=== PATIENT | female | born 1990 | race Caucasian/White ===

== ENCOUNTER 2018-12-11 15:25 | Inpatient (IN) | payer SELFPAY ==
[2017-03-28 10:35] VITALS: BMI 21.9
[2018-12-11] VITALS (11 sets, daily range): BP systolic 115–136; BP diastolic 56–75; PULSE 72–94; RESP 16–19; TEMP 36.2–36.8; O2SAT 96–100; BMI 32.2
[2018-12-11] MEDS: Lactated Ringers 1,000 ML 999 ML IV (15:55)
[2018-12-11 16:08] LABS: Absolute Neutrophil Count 8.3 X10^3/uL (2.0-7.7); Basophil# 0.05 X10^3/uL; Basophil% 0.5 % (0-1); Eosinophil# 0.09 X10^3/uL; Eosinophils% 0.8 % (0-5); Hematocrit 39.5 % (37-47); Hemoglobin 13.8 g/dL (12.0-15.0); Lymphocyte % 14.6 % (19-41); Mean Corp Hgb Conc 34.9 g/dL (32-36); Mean Corpuscular Hgb 31.4 pg (27.0-32.0); Mean Corpuscular Volume 89.8 fL (81-99); Monocyte# 0.82 X10^3/uL; Monocyte% 7.5 % (0-10); NRBC Flagged by Analyzer 0 % (0-5); Neutrophil # 8.29 X10^3/uL (2.7-7.7); Neutrophil % 75.6 % (47-70); Platelet Count 195 K/mm3 (150-450); RBC Distribution Width CV 13.2 % (11.6-14.6); RBC Distribution Width SD 43.3 fl (35.1-43.9)
--- NOTE | 2018-12-11 18:29 | PCM.HP.OB ---
- Problem List (1) 40 weeks gestation of Status: Acute (2) Breech presentation Status: Acute Qualifiers: Fetus number: single or unspecified fetus Qualified Code(s): O32.1XX0 - Maternal care for breech presentation, not applicable or unspecified History Date of Admission: 12/11/18 Final CHAZ: 12/11/18 Gestational age: 40 Weeks and 0 Days History of this : This is a 28 year-old, G [1], P [0], at 40 weeks gestational age admitted with breech presentation for scheduled section. Denies contractions, leaking of fluid or vaginal bleeding. Fetus is active. Surgical History: Surgical History (Last Updated 12/11/18 @ 18:34 by Joselyn De Anda MD) H/O laparoscopy Z98.890 Hx of appendectomy Z90.49 Allergies No Known Allergies Allergy (Verified 12/11/18 15:43) Home Medications: Home Medications Vits [Prenatabs FA] 1 tab PO DAILY 12/11/18 Smoking Status: Never smoker Alcohol: None Heart Tracinbpm TOCO Analysis: No contractions History Past Pregnancies: Past Pregnancies Delivery Date Name GA/Weeks Outcome Route Weight Gender Labor Length Anesthesia Delivery Location Provider FOB Labs: Labs 12/11/18 15:55 WBC 11.0 RBC 4.40 Hgb 13.8 Hct 39.5 MCV 89.8 MCH 31.4 MCHC 34.9 RDW Std Deviation 43.3 RDW Coeff of Sepideh 13.2 Plt Count 195 MPV 11.0 Immature Gran % (Auto) 1.000 H Neut % (Auto) 75.6 H Lymph % (Auto) 14.6 L [place] % (Auto) 7.5 Eos % (Auto) 0.8 Baso % (Auto) 0.5 Absolute Neuts (auto) 8.3 H Absolute Lymphs (auto) 1.60 Nucleated RBC % 0 Mom's Problem List Problem Status Onset Code 40 weeks gestation of Acute Z3A.40 Breech presentation Acute O32.1XX0 Mom's Labs & Results 12/11/18 12/11/18 12/11/18 15:55 15:55 17:45 WBC 11.0 RBC 4.40 Hgb 13.8 Hct 39.5 MCV 89.8 MCH 31.4 MCHC 34.9 RDW Std Deviation 43.3 RDW Coeff of Sepideh 13.2 Plt Count 195 MPV 11.0 Immature Gran % (Auto) 1.000 H Neut % (Auto) 75.6 H Lymph % (Auto) 14.6 L [place] % (Auto) 7.5 Eos % (Auto) 0.8 Baso % (Auto) 0.5 Absolute Neuts (auto) 8.3 H Absolute Lymphs (auto) 1.60 Nucleated RBC % 0 Chlam trachomat DNA PCR Pending N.gonorrhoeae DNA (PCR) Pending Blood Type AB POSITIVE Antibody Screen NEGATIVE Course Did the patient receive Yes care? Labs Blood Type: AB RH: POSITIVE RPR/VDRL/Syphilis Nonreactive Rubella status Immune HbSAg Negative Date Done: 11/12/17 Chlamydia Not Done Gonorrhea Not Done HIV/AIDS Non-Reactive Group B Strep: Not Done Other Lab Procedures/Results/ Reji/Chlamydia collected on admission Comments: Current Obstetrical History Gestational Diabetes No Incompetent Cervix No Infertility Yes: IVF IUGR No Macrosomia No Hypertension/Pre-eclampsia No Placenta Previa/Abruption No PTL/PROM No Uterine anomaly No Oligohydramnios No Polyhydramnios No Multiple gestation No Past Medical History Asthma No Diabetes No Hypertension No Heart disease No Mitral valve prolapse No Neurologic/Seizure disorder/ No Migraines Kidney disease No Liver disease No Varicosities No Clotting disorders/Hx of DVT No Thyroid Dysfunction Yes: low thyroid in the past, no meds Other medical diseases No Psychiatric disorders No Major trauma No Abnormal PAP smear No Sleep apnea No Mammogram in the last 2 years No Medications Taken During Dose/Freq.: [keenan supplement 1 tablet BID ] Last Date/Time of Medication 12/11/18 0800 Taken: [keenan supplement] Reason for taking medication [ 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 Expected Delivery Method: Scheduled Section Physical Exam Vitals: AVSS General: Alert, Oriented x3, Cooperative, No apparent distress HEENT: Atraumatic, Normocephalic Cardiovascular: Regular rate, Regular Rhythm Lungs: Clear to auscultation, Normal air movement Abdomen: Soft, Non Tender, Gravid Extremities:: No edema Neurological: Neuro grossly intact SOLE DYER: Normal external genitalia Estimated gestational size: Appropriate for gestational size Presentation: Breech Assessment/Plan All Active Problems 40 weeks gestation of (Acute) Breech presentation (Acute) This is a 28 year-old, G [1], P [0], at 40 weeks gestational age. - section consents reviewed and signed. -Blood transfusion acceptable.
[2018-12-11] MEDS: Lactated Ringers 1,000 ML 150 ML IV (19:09)
[2018-12-11] MEDS: Sodium Citrate/Citric Acid 30 ML UDC PO (19:10)
[2018-12-11] MEDS: Cefazolin 2 GM in 0.9% Normal Saline 100 ML IV (19:20)
[2018-12-11 19:35] LABS: Prothrombin Time (Protime)PT. 12.7 SECONDS (11.7-14.9)
[2018-12-11 19:36] LABS: Partial Thromboplast Time 26.2 Seconds (24.1-36.2)
[2018-12-11] MEDS: Oxytocin 30 units/NS 500 ml 30 UNITS/500 ML IV.SOLN 167 UNITS IV (19:49)
[2018-12-11] MEDS: Ondansetron 4 MG/2 ML Vial IV (19:58)
[2018-12-11 20:26] LABS: Chlamydia Trachomatis by PCR Negative (Negative); Neisserai gonorrhoeae by PCR Negative (Negative); Probe Check PASS; Sample Adequacy Control PASS; Specimen Processing Control PASS
[2018-12-11] MEDS: Lactated Ringers 1,000 ML 100 ML IV (20:40)
[2018-12-11] MEDS: Ketorolac 30 MG/ML Syringe IV (22:59)
[2018-12-11] MEDS: 0.9% Saline Lock 10 ML Syringe IV (22:59)
--- NOTE | 2018-12-11 23:38 | OP.PCM_ITS ---
Problem List (1) 40 weeks gestation of Status: Acute (2) Breech presentation Status: Acute Qualifiers: Fetus number: single or unspecified fetus Qualified Code(s): O32.1XX0 - Maternal care for breech presentation, not applicable or unspecified Delivery Classification: Scheduled Final CHAZ: 12/11/18 Final CHAZ Source: [place] <20 weeks Gestational age: 40 Weeks and 0 Days Indications: 28yo G1 @ 40wga presents for scheduled section for malpresentat ion. Indications for : Breech Description of Procedure: Patient was taken to the operating room sent and performed. No analgesia was administered she is placed in dorsal supine position with left lateral tilt. The Angela catheter was placed and abdomen prepped and draped in sterile fashion. The spinal was found to be adequate. A Pfannenstiel incision was made using scalpel to incise subcutaneous tissue and the fascia at the midline. The rectus fascial incision was extended laterally and cephalad using curved Damico scissors. The superior leaflet of the rectus fascia was grasped using Jose Carlos clamps and bluntly and sharply dissected from the underlying rectus muscle. In similar fashion the inferior leaflet of the rectus fascia was also dissected from the underlying muscle. The rectus muscles were at the midline. Peritoneum was entered bluntly and the peritoneal incision was extended. The bladder blade was placed to the abdomen. The vesicouterine peritoneal fold was identified and incised using Metzenbaum scissors and bladder flap created. The bladder blade was repositioned to the abdomen. A low transverse hysterotomy was made using the Metzenbaum scissors. There is rupture of membranes revealing clear fluid. The fetus was notably and a transverse lie. The head was guided to the hysterotomy and delivered. Infant mouth and nares were suctioned. The infant shoulders and body delivered with ease. The cord was doubly clamped and cut after approximately 30 seconds and the infant's was passed to the waiting nursery team. The placenta was expressed from the uterus. The uterus was cleared of debris. The hysterotomy was repaired using 0 Vicryl running lock suture. A second indicating there was also placed for additional hemostasis. Simon was also placed for further hemostasis. The tubes and ovaries were normal-appearing bilaterally. The peritoneum was reapproximated using 2-0 Vicryl. The rectus muscles were also reapproximated using 2-0 Vicryl. The rectus fascia was closed using oh strata fix. The closed using 4-0 Monocryl running suture by the ACCOUNT SUPPORT ASSOCIATE under my supervision. Mepilex was placed over the incision. The patient was then transferred to the recovery room without complication. Sponge, instrument and needle counts were correct x2. The patient tolerated the procedure well. Amniotic Membrane Rupture Type: Artificial Amniotic Fluid Description: Clear Placenta Disposition: [facility] Drain: Angela to straight drain Fluids Replaced: 1200 ml Cord Entanglement: None Nuchal Cord Compression: Without compression Cord Vessel Description: 3 Vessels Esitmated Blood Loss (ml): 1000 Infant Gender: Female (1 minute): 9 (5 minute): 9 Delayed cord clamping: Yes Pre-op Antibiotic Given: Ancef 2 grams IV x1 Pt instructed on risks of surgery: Bleeding, Anesthesia Risks, Infection, Injury to surrounding structure(s) including bowel and bladder Complications: None - Admit VTE Documentation VTE Present on Admission: No VTE Mechan Device Prophylaxis: SCD's VTE Pharm Prophylaxis ordered?: No
[2018-12-12] VITALS (15 sets, daily range): BP systolic 109–132; BP diastolic 59–81; PULSE 82–98; RESP 14–18; TEMP 36.5–37.3; O2SAT 97–100
[2018-12-12] MEDS: Ondansetron 4 MG/2 ML Vial IV (03:00)
[2018-12-12] MEDS: Lactated Ringers 1,000 ML 100 ML IV (03:01)
[2018-12-12] MEDS: Ketorolac 30 MG/ML Syringe IV ×4 (04:56→22:35)
[2018-12-12 06:43] LABS: Hematocrit 32.9 % (37-47); Hemoglobin 11.4 g/dL (12.0-15.0); Mean Corp Hgb Conc 34.7 g/dL (32-36); Mean Corpuscular Hgb 31.4 pg (27.0-32.0); Mean Corpuscular Volume 90.6 fL (81-99); Platelet Count 156 K/mm3 (150-450); RBC Distribution Width CV 13.3 % (11.6-14.6); RBC Distribution Width SD 43.8 fl (35.1-43.9); Red Blood Count 3.63 M/mm3 (4.2-5.4); White Blood Count 16.2 K/mm3 (4.4-11.0)
--- NOTE | 2018-12-12 08:35 | PCM.PN.OB ---
Patient Problems: Active and Suspected Problems 40 weeks gestation of (Acute) Breech presentation (Acute) Subjective: Denies pain. Not yet out of bed. Tolerates PO. No flatus. Objective: AVSS - Physical Exam General: Alert, Oriented x3, Cooperative, No apparent distress HEENT: Atraumatic, Normocephalic Lungs: Clear to auscultation, Normal air movement Cardiovascular: Regular rate, Regular Rhythm, Normal S1, Normal S2 Abdomen: Soft, Non Tender, Non-Distended, - - Fundus firm and nontender, incisional dressing with less than 10% saturation. Extremities: No edema, No Calf Tenderness Neurological: Neuro grossly intact Psych/Mental Status: Normal Affect, Appropriate, Alert and oriented to time, place, person, mood and affect Vital Signs Temp Pulse Resp BP Pulse Ox 97.9 F 97 16 115/62 97 12/12/18 05:02 12/12/18 07:10 12/12/18 07:10 12/12/18 05:02 12/12/18 07:10 Oxygen Delivery Method Room Air Weight: 85.1 kg Body Mass Index (BMI) 32.2 Intake and Output for Last 24 Hours 12/10/18 12/11/18 12/12/18 23:59 23:59 23:59 Intake Total 2924 / 2924 3076 / 3076 Output Total 800 / 800 1200 / 1200 Balance 2124 / 2124 1876 / 1876 Laboratory Tests Past 24 Hrs 12/11/18 12/11/18 12/11/18 15:55 15:55 17:45 WBC 11.0 RBC 4.40 Hgb 13.8 Hct 39.5 MCV 89.8 MCH 31.4 MCHC 34.9 RDW Std Deviation 43.3 RDW Coeff of Sepideh 13.2 Plt Count 195 MPV 11.0 Immature Gran % (Auto) 1.000 H Neut % (Auto) 75.6 H Lymph % (Auto) 14.6 L [place] % (Auto) 7.5 Eos % (Auto) 0.8 Baso % (Auto) 0.5 Absolute Neuts (auto) 8.3 H Absolute Lymphs (auto) 1.60 Nucleated RBC % 0 PT INR APTT Chlam trachomat DNA PCR Negative N.gonorrhoeae DNA (PCR) Negative Blood Type AB POSITIVE Antibody Screen NEGATIVE 12/11/18 12/12/18 19:05 06:35 WBC 16.2 H RBC 3.63 L Hgb 11.4 L Hct 32.9 L MCV 90.6 MCH 31.4 MCHC 34.7 RDW Std Deviation 43.8 RDW Coeff of Sepideh 13.3 Plt Count 156 MPV 11.0 Immature Gran % (Auto) Neut % (Auto) Lymph % (Auto) [place] % (Auto) Eos % (Auto) Baso % (Auto) Absolute Neuts (auto) Absolute Lymphs (auto) Nucleated RBC % PT 12.7 INR 1.0 APTT 26.2 Chlam trachomat DNA PCR N.gonorrhoeae DNA (PCR) Blood Type Antibody Screen Medical Necessity - Tobacco Use Smoking Status: Never smoker Assessment/Plan All Active Problems 40 weeks gestation of (Acute) Breech presentation (Acute) 28yo POD#1 s/p PLTCS doing well. -Rh positive -Routine postop op care -d/c moore, ambulation encouraged -
[2018-12-12] MEDS: 0.9% Saline Lock 10 ML Syringe IV ×4 (13:08→22:36)
--- NOTE | 2018-12-12 22:45 | DCINST_ITS ---
Discharge Diet: No Restrictions Discharge Activity: May not drive while taking narcotic pain medications., May Shower, May Take a Tub Bath Return to work on:: 01/26/19 May resume sexual activity in: 4-6 weeks Lifting Restrictions: 20 pounds Additional Activity Instructions:: Nothing in the vagina for 4-6 weeks. You may return to work/school in 6 weeks. Change Dressing in (Days):: 7 Remove Dressing in (days):: 7 Cleanse incision/area with: Soap & Water, Keep Dressing Clean & Dry Additional Instructions: If you experience any of the following, contact your healthcare provider. * Bleeding that soaks a pad every hour for 2 hours * Fever 100.4 or higher * Unrelieved incision or abdominal pain * Swelling, redness, discharge or bleeding from your incision * Problems urinating (including inability to urinate or burning while urinating). * Visual changes * Severe headache * Flu-like symptoms * Pain or redness in one of both of your breasts * Pain, warmth, tenderness or swelling in your legs, especially the calf area * Frequent nausea and vomiting * Symptoms of depression or anxiety If you experience any of the following, call 911 or go to the nearest Emergency Room. * Chest pain * Problems breathing * Seizure activity * Partial or complete paralysis of a body part, slurred speech, weakness or drooping of the face, or a sudden inability to walk or hold your balance Allergies/Adverse Reactions: Allergies No Known Allergies Allergy (Verified 12/11/18 15:43) Medications to take at Discharge Vits [Prenatabs FA] 1 tab PO DAILY 12/11/18 Docusate Sodium [Colace] 100 mg PO BID #30 cap 12/12/18 Naproxen [Naprosyn] 250 - 500 mg PO TID PRN PRN #30 tab 12/12/18 Oxycodone [Oxyir] 5 mg PO Q6H PRN PRN 7 Days #15 tablet 12/12/18 Polyethylene Glycol 3350 [Miralax] 17 gm PO DAILY PRN #14 packet 12/12/18 The following prescriptions were given: Docusate Sodium [Colace] 100 mg PO BID #30 cap Transmission Status: Pending to [address] Polyethylene Glycol 3350 [Miralax] 17 gm PO DAILY PRN #14 packet PRN Reason: Constipation Transmission Status: Pending to [facility] Naproxen [Naprosyn] 250 - 500 mg PO TID PRN PRN #30 tab PRN Reason: Mild-Mod Pain (1-09/19) Transmission Status: Pending to [facility] Oxycodone [Oxyir] 5 mg PO Q6H PRN PRN 7 Days #15 tablet PRN Reason: Mod-Severe Pain (-02/19) Transmission Status: Received by [facility] [employer] [facility] Follow-Up: Call to make an appointment with your doctor for an incision check in 1-2 weeks. You will also need a 6 week post- follow up appointment. Test results from this visit will be discussed in further detail at your follow- up appointment, if applicable. Please Follow Up With: Joselyn De Anda MD - [phone] When: Call to make an appointment for an incision check in 2 weeks. Primary Care Physician: Brad Tejeda MD [Primary Care Provider] -
[2018-12-13 01:56] VITALS: BP 107/66; PULSE 75; RESP 16; TEMP 36.3
[2018-12-13] MEDS: Ketorolac 30 MG/ML Syringe IV ×2 (04:34→10:47)
[2018-12-13] MEDS: 0.9% Saline Lock 10 ML Syringe IV ×2 (04:35→04:36)
--- NOTE | 2018-12-13 07:47 | PN.OBGYN_ITS ---
Patient Problems: Active and Suspected Problems 40 weeks gestation of (Acute) Breech presentation (Acute) Subjective: POD#2 Primary C/S for breech presentation Doing well. Breast feeding. Would like to go home today. Asking what time she can go as family planning to visit and she will need to call a sales warehouse driver. No conc erns voiced. Questions about incision care Objective: Lying in bed, holding sleeping baby - Physical Exam General: Alert, Oriented x3, Cooperative, No apparent distress HEENT: Atraumatic, EOMI Neck: Supple Abdomen: Soft - Fundus firm minimally tender, and 2 cm inferior to umbilicus. Skin: Incision - dressing with several areas of old drainage. Mepilex removed. Incision CDI. New mepilex dressing applied. Neurological: Cranial nerves II-XII grossly intact Psych/Mental Status: Normal Affect Vital Signs Temp Pulse Resp BP Pulse Ox 97.4 F L 75 16 107/66 98 12/13/18 01:56 12/13/18 01:56 12/13/18 01:56 12/13/18 01:56 12/12/18 10:15 Oxygen Delivery Method Room Air Weight: 85.1 kg Body Mass Index (BMI) 32.2 Intake and Output for Last 24 Hours 12/11/18 12/12/18 12/13/18 23:59 23:59 23:59 Intake Total 2924 / 2924 4764 / 4764 Output Total 800 / 800 3500 / 3500 Balance 2124 / 2124 1264 / 1264 Medical Necessity - Tobacco Use Smoking Status: Never smoker Assessment/Plan All Active Problems 40 weeks gestation of (Acute) Breech presentation (Acute) POD#2 Primary C/S Breech Stable postop. Requesting dischg home today to rest and recover there. D/C home. RTO in 1-2 wks for postop check.
--- NOTE | 2018-12-13 07:54 | DS.PCM_ITS ---
Discharge Date and Diagnosis - Problem List Patient Problems: Active and Suspected Problems 40 weeks gestation of (Acute) Breech presentation (Acute) Date of Admission: 12/11/18 - 40 weeks gestational age. Breech Date of Discharge: 12/13/18 - s/p primary C section - Primary Discharge Diagnosis Active and Suspected Problems 40 weeks gestation of (Acute) Breech presentation (Acute) - Secondary Discharge Diagnosis Chronic Problems Pelvic pain (Chronic) Primary female infertility (Chronic) Hospital Course and Treatment Operations: - - Primary C section Summary of Care Provided: The patient is a 28 year old female at 40 wk EGA admitted for primary C/S due to breech presentation. Primary C section performed on 12/11/18 . Uneventful. Postop course uneventful and requests dischg home to rest at home on POD#2. Patient Problems: Active and Suspected Problems 40 weeks gestation of (Acute) Breech presentation (Acute) - Physical Exam Vital Signs Temp Pulse Resp BP Pulse Ox 97.4 F L 75 16 107/66 98 12/13/18 01:56 12/13/18 01:56 12/13/18 01:56 12/13/18 01:56 12/12/18 10:15 Oxygen Delivery Method Room Air Weight: 85.1 kg Body Mass Index (BMI) 32.2 Intake and Output for Last 24 Hours 12/11/18 12/12/18 12/13/18 23:59 23:59 23:59 Intake Total 2924 / 2924 4764 / 4764 Output Total 800 / 800 3500 / 3500 Balance 2124 / 2124 1264 / 1264 Discharge Diet: No Restrictions Discharge Activity: May not drive while taking narcotic pain medications., May Shower, May Take a Tub Bath Return to work on:: 01/26/19 May resume sexual activity in: 4-6 weeks Additional Activity Instructions:: Nothing in the vagina for 4-6 weeks. You may return to work/school in 6 weeks. Change Dressing in (Days):: 7 Remove Dressing in (days):: 7 Cleanse incision/area with: Soap & Water, Keep Dressing Clean & Dry Home Medications: Medications to take at Discharge Vits [Prenatabs FA] 1 tab PO DAILY 12/11/18 Docusate Sodium [Colace] 100 mg PO BID #30 cap 12/12/18 Naproxen [Naprosyn] 250 - 500 mg PO TID PRN PRN #30 tab 12/12/18 Oxycodone [Oxyir] 5 mg PO Q6H PRN PRN 7 Days #15 tab 12/12/18 Polyethylene Glycol 3350 [Miralax] 17 gm PO DAILY PRN #14 packet 12/12/18 Following Prescrptions Were Given to Patient: Docusate Sodium [Colace] 100 mg PO BID #30 cap Transmission Status: Received by [facility] [address] Polyethylene Glycol 3350 [Miralax] 17 gm PO DAILY PRN #14 packet PRN Reason: Constipation Transmission Status: Received by [facility] [address] Naproxen [Naprosyn] 250 - 500 mg PO TID PRN PRN #30 tab PRN Reason: Mild-Mod Pain (1-09/19) Transmission Status: Received by [facility] [address] Oxycodone [Oxyir] 5 mg PO Q6H PRN PRN 7 Days #15 tab PRN Reason: Mod-Severe Pain (-02/19) Transmission Status: Received by [facility] [address] Primary Care Physician: Brad Tejeda MD [Primary Care Provider] - Please Follow Up With: Joselyn De Anda MD - [phone] When: Call to make an appointment for an incision check in 2 weeks. Medical Necessity - Tobacco Use Smoking Status: Never smoker Meaningful Use Info Meaningful Use Diagnoses (Choose all that apply): None applicable
[2018-12-13 09:31] VITALS: BP 110/70; PULSE 77; RESP 16; TEMP 37; O2SAT 99
--- NOTE | 2018-12-17 15:34 | NURSING ---
Spoke with said she was doing really well , saw regional recruiter today and everything was going well. plans to call today or tomorrow because her cut was hurting but baby is doing well and they were satisfied with their care
== END 2018-12-13 11:25 | disposition home or self-care (01) | DRG 788 ==
PROVIDERS: Admitting Provider Obstetrics & Gynecology; Family Provider Family Medicine; PCP Family Medicine; Referring Provider Obstetrics & Gynecology; Visit Provider Obstetrics & Gynecology
DX: O32.1XX0 Maternal care for breech presentation, not applicable or unspecified (principal); O48.0 Post-term pregnancy; Z3A.40 40 weeks gestation of pregnancy; O69.81X0 Labor and delivery complicated by cord around neck, without compression, not applicable or unspecified; Z37.0 Single live birth
CPT/HCPCS: 85025; 85027; 85610; 85730; 86850; 86900; 87491; 87591; 99218; J7120; A4216; G0378; J2405

== ENCOUNTER → 2019-07-27 10:23 | Outpatient (CLI) | payer SELFPAY ==
[2018-12-11 15:42] VITALS: BMI 32.2
--- NOTE | 2019-07-27 10:31 | US_ITS ---
STUDY: ABDOMINAL ULTRASOUND REASON FOR EXAM: Female, 29 years old. ABDOMINAL PAIN TECHNIQUE: Transabdominal ultrasound was performed with real-time and static [place] scale imaging. TECHNICAL QUALITY: Adequate. COMPARISON: None. FINDINGS: Liver: The liver measures 14.9 cm. There is normal echogenicity of the liver. The bile ducts are within normal limits. There is hepatic color flow. The direction of portal flow is hepatopetal. There is no demonstrated mass lesion. Portal vein measurement: Gallbladder: Normal distended gallbladder. The gallbladder wall measures 1.4 mm. There is a negative sonographic Branham''s sign. There is no pericholecystic fluid. There are no gallstones. Common Bile Duct (C.B.D.): The common bile duct measures 4.2 mm. Pancreas: Normal size of the head, body and tail of the pancreas. There is normal echogenicity of the pancreas. There is no demonstrated pancreatic mass or cyst. Spleen: Normal size of the spleen. The spleen measures 8.7 cm x 4.2 cm x 4.8 cm. Right Kidney: Normal size of the right kidney. The right kidney measures 11.5 cm x 5.5 cm x 3.9 cm. Normal renal cortex. The right cortex measures 1.1 cm. There is no demonstrated renal mass or cyst. There is no right hydronephrosis. Left Kidney: Normal size of the left kidney. The left kidney measures 10.7 cm x 5.1 cm x 4.0 cm. Normal renal cortex. The left cortex measures 1.3 cm. There is no demonstrated renal mass or cyst. There is no left hydronephrosis. Aorta: Unremarkable I.V.C.: The IVC is patent. There is no ascites. US/Abdomen Complete IMPRESSION: Normal abdominal ultrasound examination. Electronically Signed: Malik Mesa, at 14:35 EDT , Service support ,
== END ==
DX: R11.0 Nausea (principal); R10.9 Unspecified abdominal pain; M54.9 Dorsalgia, unspecified; R42 Dizziness and giddiness
CPT/HCPCS: 76700